=== PATIENT | male | born 1975 | race African-American/Black ===

== ENCOUNTER 2019-01-14 11:10 | Emergency (ER) | payer OTHER ==
[~2019-01-14] VITALS: Ht 167.6 cm; Wt 76.2 kg
[2019-01-14] MEDS ORDERED: ONDANSETRON PF 4 MG/2 ML VIAL. IV ONE (12:00)
[2019-01-14] MEDS ORDERED: ASPIRIN 325 MG TABLET PO ONE (12:00)
[2019-01-14] MEDS ORDERED: FAMOTIDINE 20 MG/2 ML VIAL IVP ONE (12:00)
[2019-01-14] MEDS ORDERED: IV NORMAL SALINE 1000ML BAG 1,000 ML IV ONE ×2 (12:00→13:30)
[2019-01-14 12:04] LABS: BASO % 0 % (0-3); EOS # 0.1 x10^3/uL (0.0-0.7); EOS % 2 % (0-3); HEMATOCRIT 46.4 % (39.0-53.0); HEMOGLOBIN 15.5 g/dL (13.0-17.5); LYMPH # 1.8 x10^3/uL (1.0-4.8); LYMPH % 23 % (24-48); MEAN CORPUSCULAR HEMOGLOBIN 30 pg (25-35); MEAN CORPUSCULAR HGB CONC 33 g/dL (31-37); MEAN CORPUSCULAR VOLUME 90 fL (79-100); MONO # 0.6 x10^3/uL (0.0-1.1); MONO % 8 % (0-9); NEUT # 5.3 x10^3uL (1.8-7.7); NEUT % 68 % (31-73); PLATELET COUNT 141 x10^3/uL (140-400); RED BLOOD COUNT 5.17 x10^6/uL (4.30-5.70); RED CELL DISTRIBUTION WIDTH 14.5 % (11.5-14.5); WHITE BLOOD COUNT 7.8 x10^3/uL (4.0-11.0)
[2019-01-14 12:05] LABS: CALCIUM 9.3 mg/dL (8.5-10.1); CREATININE 1.5 mg/dL (0.7-1.3); GFR 50.8; POTASSIUM 4.1 mmol/L (3.5-5.1)
[2019-01-14 12:11] LABS: ALBUMIN 4.4 g/dL (3.4-5.0); ALBUMIN/GLOBULIN RATIO 1.1 (1.0-1.7); MAGNESIUM 1.9 mg/dL (1.8-2.4); TOTAL BILIRUBIN 0.8 mg/dL (0.2-1.0); TOTAL PROTEIN 8.5 g/dL (6.4-8.2)
[2019-01-14 12:17] LABS: PROTHROMBIN TIME PATIENT 13.5 SEC (11.7-14.0)
[2019-01-14 12:29] LABS: INFLUENZA A PATIENT NEGATIVE (NEGATIVE); INFLUENZA B PATIENT NEGATIVE (NEGATIVE)
[2019-01-14 12:59] LABS: BILIRUBIN,URINE NEGATIVE (NEG); CLARITY,URINE CLEAR; COLOR,URINE YELLOW; NITRITE,URINE NEGATIVE (NEG); PROTEIN,URINE 30 mg/dL (NEG-TRACE)
[2019-01-14 13:02] LABS: BARBITURATES NEG (NEG); BENZODIAZEPINES NEG (NEG); CANNABINOIDS NEG (NEG); COCAINE NEG (NEG); METHADONE NEG (NEG); OPIATES NEG (NEG); PHENCYCLIDINE NEG (NEG)
[2019-01-14 13:04] LABS: AMPHETAMINE/METHAMPHETAMINE NEG (NEG)
--- NOTE | 2019-01-14 13:04 | PHYS DOC ---
Past Medical History Past Medical History: No Pertinent History Past Surgical History: No Surgical History Alcohol Use: Occasionally Drug Use: None Adult General Chief Complaint Chief Complaint: NAUSEA/VOMITING/DIARRHA HPI HPI Patient is a 43 year old male with no significant medical history who presents to the ED today complaining of generalized weakness, nausea, diarrhea, symptoms began 4 days ago. Patient denies any melena. He is complaining of 4 out of 10 generalized abdominal pain. He is diaphoretic on arrival to the ED. Review of Systems Review of Systems Constitutional: Reports generalized weakness. Denies fever or chills [] Eyes: Denies change in visual acuity, redness, or eye pain [] HENT: Denies nasal congestion or sore throat [] Respiratory: Denies cough or shortness of breath [] Cardiovascular: No additional information not addressed in HPI [] GI: Reports abdominal pain, nausea, diarrhea, denies vomiting : Denies dysuria or hematuria [] Musculoskeletal: Denies back pain or joint pain [] Integument: Denies rash or skin lesions [] Neurologic: Denies headache, focal weakness or sensory changes [] Endocrine: Denies polyuria or polydipsia [] All other systems were reviewed and found to be within normal limits, except as documented in this note. Current Medications Current Medications Current Medications Medications (Trade) Dose Ordered Sig/[facility] Start Time Stop Time Status Last Admin Dose Admin Aspirin (Devin Aspirin) 325 mg 1X ONCE 01/14/19 12:00 01/14/19 12:01 DC 01/14/19 12:15 325 MG Famotidine (Pepcid Vial) 20 mg 1X ONCE 01/14/19 12:00 01/14/19 12:01 DC 01/14/19 12:15 20 MG Ondansetron HCl (Zofran) 4 mg 1X ONCE 01/14/19 12:00 01/14/19 12:01 DC 01/14/19 12:15 4 MG Sodium Chloride 1,000 ml @ 1,000 mls/hr 1X ONCE 01/14/19 13:30 01/14/19 14:29 DC 01/14/19 13:25 1,000 MLS/HR Allergies Allergies Allergies Coded Allergies Type Severity Reaction Last Updated Verified No Known Drug Allergies 01/14/19 No Physical Exam Physical Exam Constitutional: Patient is diaphoretic on arrival to the ED. Well developed, well nourished, no acute distress, non-toxic appearance. [] HENT: Normocephalic, atraumatic, bilateral external ears normal, oropharynx moist, no oral exudates, nose normal. [] Eyes: PERRLA, EOMI, conjunctiva normal, no discharge. [] Neck: Normal range of motion, no tenderness, supple, no stridor. [] Cardiovascular:Heart rate regular rhythm, no murmur [] Lungs & Thorax: Bilateral breath sounds clear to auscultation [] Abdomen: Bowel sounds normal, soft, no tenderness, no masses, no pulsatile masses. [] Skin: Warm, dry, no erythema, no rash. [] Back: No tenderness, no CVA tenderness. [] Extremities: No tenderness, no cyanosis, no clubbing, ROM intact, no edema. [] Neurologic: Alert and oriented X 3, normal motor function, normal sensory function, no focal deficits noted. Cranial nerves II through XII intact. Psychologic: Affect normal, judgement normal, mood normal. [] Current Patient Data Vital Signs Vital Signs Date Time Temp Pulse Resp B/P (MAP) Pulse Ox O2 Delivery O2 Flow Rate FiO2 01/14/19 11:30 98.8 98 18 169/102 (124) 98 Room Air 98.8 Lab Values Laboratory Tests Test 01/14/19 11:45 01/14/19 12:02 01/14/19 12:40 01/14/19 13:50 White Blood Count 7.8 x10^3/uL (4.0-11.0) Red Blood Count 5.17 x10^6/uL (4.30-5.70) Hemoglobin 15.5 g/dL (13.0-17.5) Hematocrit 46.4 % (39.0-53.0) Mean Corpuscular Volume 90 fL (79-100) Mean Corpuscular Hemoglobin 30 pg (25-35) Mean Corpuscular Hemoglobin Concent 33 g/dL (31-37) Red Cell Distribution Width 14.5 % (11.5-14.5) Platelet Count 141 x10^3/uL (140-400) Neutrophils (%) (Auto) 68 % (31-73) Lymphocytes (%) (Auto) 23 % (24-48) L Monocytes (%) (Auto) 8 % (0-9) Eosinophils (%) (Auto) 2 % (0-3) Basophils (%) (Auto) 0 % (0-3) Neutrophils # (Auto) 5.3 x10^3uL (1.8-7.7) Lymphocytes # (Auto) 1.8 x10^3/uL (1.0-4.8) Monocytes # (Auto) 0.6 x10^3/uL (0.0-1.1) Eosinophils # (Auto) 0.1 x10^3/uL (0.0-0.7) Basophils # (Auto) 0.0 x10^3/uL (0.0-0.2) Prothrombin Time 13.5 SEC (11.7-14.0) Prothrombin Time INR 1.1 (0.8-1.1) Sodium Level 141 mmol/L (136-145) 141 mmol/L (136-145) Potassium Level 4.1 mmol/L (3.5-5.1) 4.3 mmol/L (3.5-5.1) Chloride Level 102 mmol/L (98-107) 104 mmol/L (98-107) Carbon Dioxide Level 31 mmol/L (21-32) 29 mmol/L (21-32) Anion Gap 8 (6-14) 8 (6-14) Blood Urea Nitrogen 18 mg/dL (8-26) 15 mg/dL (8-26) Creatinine 1.5 mg/dL (0.7-1.3) H 1.4 mg/dL (0.7-1.3) H Estimated GFR (Cockcroft-Gault) 50.8 66.6 BUN/Creatinine Ratio 12 (6-20) Glucose Level 110 mg/dL (70-99) H 89 mg/dL (70-99) Calcium Level 9.3 mg/dL (8.5-10.1) 8.3 mg/dL (8.5-10.1) L Magnesium Level 1.9 mg/dL (1.8-2.4) Total Bilirubin 0.8 mg/dL (0.2-1.0) Aspartate Amino Transferase (AST) 49 U/L (15-37) H Alanine Aminotransferase (ALT) 34 U/L (16-63) Alkaline Phosphatase 68 U/L (46-116) Creatine Kinase 718 U/L (39-308) H Creatine Kinase MB (Mass) 2.4 ng/mL (0.0-3.6) Creatine Kinase MB Relative Index 0.3 % (0-4) Troponin I Quantitative < 0.017 ng/mL (0.000-0.055) DL-Bko-C-Type Natriuretic Peptide 5 pg/mL (0-124) Total Protein 8.5 g/dL (6.4-8.2) H Albumin 4.4 g/dL (3.4-5.0) Albumin/Globulin Ratio 1.1 (1.0-1.7) Lipase 125 U/L (73-393) Influenza Type A Antigen Negative (NEGATIVE) Influenza Type B Antigen Negative (NEGATIVE) Urine Collection Type Unknown Urine Color Yellow Urine Clarity Clear Urine pH 6.0 Urine Specific [place] 1.025 Urine Protein 30 mg/dL (NEG-TRACE) Urine Glucose (UA) Negative mg/dL (NEG) Urine Ketones (Stick) Trace mg/dL (NEG) Urine Blood Negative (NEG) Urine Nitrite Negative (NEG) Urine Bilirubin Negative (NEG) Urine Urobilinogen Dipstick 1.0 mg/dL (0.2 mg/dL) Urine Leukocyte Esterase Negative (NEG) Urine RBC 0 /HPF (0-2) Urine WBC 1-4 /HPF (0-4) Urine Squamous Epithelial Cells Occ /LPF Urine Bacteria 0 /HPF (0-FEW) Urine Mucus Mod /LPF Urine Opiates Screen Neg (NEG) Urine Methadone Screen Neg (NEG) Urine Barbiturates Neg (NEG) Urine Phencyclidine Screen Neg (NEG) Urine Amphetamine/Methamphetamine Neg (NEG) Urine Benzodiazepines Screen Neg (NEG) Urine Cocaine Screen Neg (NEG) Urine Cannabinoids Screen Neg (NEG) Urine Ethyl Alcohol Neg (NEG) Laboratory Tests 01/14/19 11:45 Laboratory Tests 01/14/19 11:45 01/14/19 13:50 EKG EKG [] Radiology/Procedures Radiology/Procedures [] Course & Med Decision Making Course & Med Decision Making Pertinent Labs and Imaging studies reviewed. (See chart for details) This is a 43-year-old male patient presenting to the ED today with nausea, diarrhea abdominal pain and generalized weakness for 4 days. He arrives in the ED diaphoretic. Denies any chest pain or shortness of breath. Negative for influenza A or B. CBC with normal WBC, CMP with creatinine of 1.5, BUN is normal, patient denies any previous history of kidney failure. Given IV fluids recheck creatinine 1.[address] of the abdomen is negative, chest x-ray is negative. Blood pressure is 160s over 90s. Patient denies any history of hypertension. I recommended following up with the PCP for possible hypertension. Patient feeling better after IV fluids and Zofran. Will be discharged to home with Zofran. Dragon Disclaimer Dragon Disclaimer This electronic medical record was generated, in whole or in part, using a voice recognition dictation system. Departure Departure Impression: Primary Impression: Nausea and vomiting Additional Impressions: Diarrhea Weakness Dehydration HTN (hypertension) Disposition: HOME, SELF-CARE Condition: STABLE Patient Instructions: Diarrhea, [id number], Nausea, Adult Additional Instructions: You were evaluated in the emergency room. Your blood pressure was noted to be high, please establish care with a primary care doctor and have them follow up for this. Your current symptoms could be viral. Please push fluids, maintain good hand hygiene. Take Zofran as needed for nausea/vomiting. Take over-the- counter Imodium as needed for diarrhea. Scripts Dicyclomine Hcl (DICYCLOMINE HCL) 20 Mg Tablet 1 TAB PO TID, #30 TAB 0 Refills Prov: KENNETH ARGUETA APRN 01/14/19 Ondansetron (ONDANSETRON ODT) 4 Mg Tab.rapdis 1 TAB PO PRN Q6-8HRS, #16 TAB Prov: KENNETH ARGUETA APRN 01/14/19 Problem Qualifiers Primary Impression: Nausea and vomiting Vomiting type: unspecified Vomiting Intractability: unspecified Qualified Codes: R11.2 - Nausea with vomiting, unspecified Additional Impressions: Diarrhea Diarrhea type: unspecified type Qualified Codes: R19.7 - Diarrhea, unspecified HTN (hypertension) Hypertension type: unspecified Qualified Codes: I10 - Essential (primary) hypertension KENNETH ARGUETA APRN Jan 14, 2019 13:04
--- NOTE | 2019-01-14 13:04 | RAD ---
AP view of the chest. Comparison: None. Indication: LOW ENERGY, CHEST PRESSURE SINCE YESTERDAY Findings: Normal lung volume. No focal airspace disease. Normal pulmonary vasculature. No pleural effusion. No pneumothorax. The cardiomediastinal silhouette is normal in appearance. The great vessels are normal. No acute osseous abnormality. Impression: 1. No acute cardiopulmonary process. Electronically signed by: Anupam Chung MD (01/14/2019 1:01 PM) [facility]
[2019-01-14 13:17] LABS: SQUAMOUS EPITHELIAL CELL,UR OCC /LPF
[2019-01-14 13:18] LABS: BACTERIA,URINE 0 /HPF (0-FEW); RBC,URINE 0 /HPF (0-2)
--- NOTE | 2019-01-14 13:29 | RAD ---
CT Abdomen; CT Pelvis without contrast INDICATION: Nausea, vomiting, diarrhea COMPARISON: None. TECHNIQUE: Multiple contiguous axial images were obtained throughout the abdomen, and pelvis without the use of IV contrast. Axial images were reformatted into coronal and sagittal planes. FINDINGS: Abdomen findings: Evaluation of solid abdominal viscera is limited without the use of IV contrast. However, the liver, gallbladder, spleen, pancreas, and adrenal glands are unremarkable. The kidneys are unremarkable. There is no significant mesenteric or retroperitoneal adenopathy identified, though evaluation is limited without intravenous contrast. There is no evidence of free intraperitoneal fluid or pneumoperitoneum. Mild colonic diverticulosis without evidence of diverticulitis. Visualized portions of the bowel are grossly unremarkable. Normal appendix. Pelvis findings: The urinary bladder is underdistended limiting evaluation. There is no significant pelvic ascites. No significant iliac or inguinal adenopathy is identified. Vasectomy clips. No acute osseous abnormality. Mild multilevel degenerative changes of the visualized spine. IMPRESSION: No acute intra-abdominal or intrapelvic process identified. Electronically signed by: Anupam Chung MD (01/14/2019 1:27 PM) [facility]
[2019-01-14 14:09] LABS: CALCIUM 8.3 mg/dL (8.5-10.1); CREATININE 1.4 mg/dL (0.7-1.3); GFR 66.6; POTASSIUM 4.3 mmol/L (3.5-5.1)
[2019-01-14] MEDS ORDERED: DICY20TA3 PO (14:53)
[2019-01-14] MEDS ORDERED: ONDA4TAB12 PO (14:53)
[2019-01-14 15:03] VITALS: BP 161/88
--- NOTE | 2019-01-14 17:02 | EKG ---
[facility] [address] [place] [address] Test Date: 2019-01-14 Test Time: 11:38:27 Pat Name: GRANT DEGROOT Department: Room: Gender: M Heat Treat Technician: : 1975 Requested By: KENNETH ARGUETA Order Number: [id number] Reading MD: Trey Aldana MD Measurements Intervals [place] Rate: 93 P: 38 LA: 130 QRS: 50 QRSD: 82 T: 23 QT: 320 QTc: 400 Interpretive Statements SINUS RHYTHM NON SPECIFIC ST-T ABNORMALITY (ELEVATION) Electronically Signed On 01-15-2019 10:19:41 CDT by Trey Aldana MD
== END 2019-01-14 15:10 | disposition home or self-care (01) ==
LOC: ER 11:10
DX: E86.0 Dehydration (principal); I10 Essential (primary) hypertension; R53.1 Weakness
CPT/HCPCS: 36415; 71045; 74176; 80048; 80053; 80307; 81001; 82553; 83690; 83735; 83880; 84484; 85025; 85610; 87804; 93005; 96361; 96374; 96375; 99284; J2405; J3490; J7030